=== PATIENT | female | born 1980 | race Caucasian/White ===

== ENCOUNTER 2016-09-07 10:29 | Emergency (ER) | payer OTHER ==
[~2016-09-07] VITALS: Ht 162.6 cm; Wt 63.3 kg
[~2016-09-07 10:29] MED LIST: CAMILA0.35 MG PO; CHROMAGEN,1 CAPSULE PO; FLEXERIL10 MG PO; FLOMAX0.4 MG PO; FLONASE16 G1 BOTH NARES; IBUPROFEN800 MG PO; MOTRIN800 MG PO; Micronor,Nor-Q-D,Err PO; NAPROSYN500 MG PO; PERCOCET 5/31 TABLET PO; PROAIR HFA8.5 GM IH; SINGULAIR10 MG PO; ULTRACET1 TABLET PO; ZOFRAN ODT4 MG PO
[2016-09-07] MEDS ORDERED: FLEXERIL10 MG PO (12:04)
[2016-09-07] MEDS ORDERED: NAPROXEN500 MG PO (12:04)
[2016-09-07] MEDS ORDERED: LIDODERM 5% P1 PATCH TD (12:04)
[2016-09-07 12:27] VITALS: BP 127/85
== END 2016-09-07 12:30 | disposition home or self-care (01) ==
LOC: EME 10:29
DX: S39.012A Strain of muscle, fascia and tendon of lower back, initial encounter (principal); X58.XXXA Exposure to other specified factors, initial encounter
CPT/HCPCS: 99281; 99284; J1885

== ENCOUNTER 2016-11-17 16:33 | Day surgery (SDC) | payer OTHER ==
[~2016-11-17] VITALS: Ht 162.6 cm; Wt 65.2 kg
[~2016-11-17 16:33] MED LIST changes: +LIDODERM 5% P1 PATCH TD; +NAPROXEN500 MG PO
[2016-11-17 17:30] LABS: EOSINOPHIL COUNT 0.3 K/uL (0-0.3); HEMATOCRIT 38.2 % (36.0-46.0); IMMATURE GRANULOCYTE (%) 0.6 % (0.0-0.7); IMMATURE GRANULOCYTE COUNT 0.1 K/uL; INSTRUMENT ABS NEUTROPHIL CT 6.5 K/uL; LYMPHOCYTE COUNT 1.1 K/uL (1.0-2.8); MCH 28.2 PG (29.0-34.0); MCHC 33.8 G/DL (30.0-36.0); MCV 83.4 FL (83-99); MEAN PLAT.VOLUME 9.6 uM^3 (9.5-12.4); MONOCYTE (%) 5.1 % (3-12); MONOCYTE COUNT 0.4 K/uL (0-0.8); NEUTROPHIL (%) 77.8 % (45-76); NEUTROPHIL COUNT 6.5 K/uL (1.8-6.4); PLATELET COUNT 268 K/uL (156-360); RBC DIS.WIDTH-CV 11.9 % (11.8-14.6); RBC DIS.WIDTH-SD 35.9 % (39-53); RED BLOOD COUNT 4.58 M/uL (3.80-5.20); WHITE BLOOD COUNT 8.3 K/uL (4.1-10.2)
[2016-11-17] MEDS ORDERED: CYANOCOBALAM1000 MCG PO (18:35)
[2016-11-17] MEDS ORDERED: NORA-BE0.35 MG PO (18:35)
[2016-11-17] MEDS ORDERED: [UNRECOGNIZED DRUG - REMARK] PO (18:36)
[2016-11-17] MEDS ORDERED: FLAGYL500 MG PO (19:24)
[2016-11-17] MEDS ORDERED: IBUPROFEN800 MG PO (19:24)
[2016-11-17 21:06] LABS: HEMATOCRIT 32.8 % (36.0-46.0); MCH 28.4 PG (29.0-34.0); MCHC 33.5 G/DL (30.0-36.0); MCV 84.5 FL (83-99); MEAN PLAT.VOLUME 9.7 uM^3 (9.5-12.4); PLATELET COUNT 219 K/uL (156-360); RBC DIS.WIDTH-CV 11.9 % (11.8-14.6); RBC DIS.WIDTH-SD 36.4 % (39-53); RED BLOOD COUNT 3.88 M/uL (3.80-5.20); WHITE BLOOD COUNT 9.8 K/uL (4.1-10.2)
[2016-11-17 21:27] VITALS: BP 117/62
== END 2016-11-17 21:54 | disposition home or self-care (01) ==
LOC: EME 16:33 → SDC 18:44 → EME 18:44 → SDC 21:54
PROVIDERS: Emergency Medicine; Obstetrics & Gynecology
PROC: 10D17ZZ Extraction of Products of Conception, Retained, Via Natural or Artificial Opening (ICD-10-PCS; principal; 2016-11-17)
DX: O03.4 Incomplete spontaneous abortion without complication (principal); Z31.82 Encounter for Rh incompatibility status; J45.909 Unspecified asthma, uncomplicated
CPT/HCPCS: 83030; 84702; 85025; 85027; 86900; 86901; 88305; 99281; 99285; J0131; J1100; J1885; J2250; J2405; J2590; J2765; J2790; J3010; J7030

== ENCOUNTER → 2018-01-19 | Outpatient (CLI) | payer OTHER ==
[2018-01-18 13:56] LABS: HEMATOCRIT 30.9 % (36.0-46.0); HEMOGLOBIN 9.7 G/DL (11.9-15.5); MCH 24.1 PG (29.0-34.0); MCHC 31.4 G/DL (30.0-36.0); MCV 76.7 FL (83-99); PLATELET COUNT 236 K/uL (156-360); RBC DIS.WIDTH-CV 14.1 % (11.8-14.6); RBC DIS.WIDTH-SD 39.2 % (39-53); RED BLOOD COUNT 4.03 M/uL (3.80-5.20); WHITE BLOOD COUNT 7.8 K/uL (4.1-10.2)
[2018-01-18 14:53] LABS: HEPATITIS B SURFACE ANTIBODY Nonreactive; HEPATITIS B SURFACE ANTIGEN Nonreactive
[2018-01-18 14:54] LABS: HIV-1/2 AB/AG COMBO Nonreactive
[2018-01-18 15:42] LABS: BENZODIAZEPINES, URINE SCREEN Negative (200 ng/mL)
[~2018-01-19] VITALS: Ht 162.6 cm; Wt 73.2 kg
[~2018-01-19] MED LIST changes: +CYANOCOBALAM1000 MCG PO; +FLAGYL500 MG PO; +NORA-BE0.35 MG PO; +ZYRTEC5 MG PO; +[UNRECOGNIZED DRUG - REMARK] PO
[2018-01-19 10:32] LABS: HEMOGLOBIN A1c (GLYCOHEMOGLOB) 5.5 % (Below 5.7)
[2018-01-19 11:18] LABS: TREPONEMA ANTIBODY EQUIVOCAL (NEGATIVE)
[2018-01-19 11:44] VITALS: BP 122/78
[2018-01-20 18:10] LABS: RPR SCREEN Nonreactive (Nonreactive)
[2018-01-21 20:14] LABS: TREPONEMA PALLIDUM PART AGGL Nonreactive (Nonreactive)
== END | disposition home or self-care (01) ==
LOC: IVINF 11:00
PROVIDERS: Advanced Practice Midwife
DX: Z34.83 Encounter for supervision of other normal pregnancy, third trimester (principal); Z31.82 Encounter for Rh incompatibility status; Z3A.28 28 weeks gestation of pregnancy; Z67.91 Unspecified blood type, Rh negative
CPT/HCPCS: 36415; 80306 90; 82950; 83036; 85027; 86592 90; 86706; 86762; 86780; 86780 90; 86850; 86900; 86901; 87086; 87340; 87389; J2790

== ENCOUNTER 2018-02-08 01:05 | Inpatient (IN) | payer OTHER ==
[2018-02-08] VITALS (10 sets, daily range): BP systolic 112–139; BP diastolic 61–79
[2018-02-08 02:02] LABS: BASOPHIL (%) 0.3 % (0-1); EOSINOPHIL (%) 0.7 % (0-5); EOSINOPHIL COUNT 0.1 K/uL (0-0.3); HEMATOCRIT 29.5 % (36.0-46.0); HEMOGLOBIN 9.4 G/DL (11.9-15.5); IMMATURE GRANULOCYTE (%) 0.8 % (0.0-0.7); LYMPHOCYTE (%) 21.2 % (15-42); LYMPHOCYTE COUNT 2.1 K/uL (1.0-2.8); MCHC 31.9 G/DL (30.0-36.0); MONOCYTE (%) 9.3 % (3-12); MONOCYTE COUNT 0.9 K/uL (0-0.8); NEUTROPHIL (%) 67.7 % (45-76); NEUTROPHIL COUNT 6.6 K/uL (1.8-6.4); PLATELET COUNT 267 K/uL (156-360); RBC DIS.WIDTH-CV 14.7 % (11.8-14.6); RBC DIS.WIDTH-SD 38.5 % (39-53); RED BLOOD COUNT 4.09 M/uL (3.80-5.20); WHITE BLOOD COUNT 9.8 K/uL (4.1-10.2)
[2018-02-08 02:03] LABS: MCV 72.1 FL (83-99)
[2018-02-08 02:29] LABS: AMPHETAMINE NEGATIVE (500 ng/mL); BARBITURATES NEGATIVE (200 ng/mL); BENZODIAZEPINES NEGATIVE (150 ng/mL); BUPRENORPHINE NEGATIVE (10 ng/mL); COCAINE NEGATIVE (150 ng/mL); METHADONE NEGATIVE (200 ng/mL); METHAMPHETAMINE NEGATIVE (500 ng/mL); OPIATES (MORPHINE) NEGATIVE (100 ng/mL); OXYCODONE NEGATIVE (100 ng/mL); PHENCYCLIDINE NEGATIVE (25 ng/mL); PROPOXYPHENE NEGATIVE (300 ng/mL); THC CANNABINOIDS NEGATIVE (50 ng/mL); TRICYCLIC ANTIDEPRESSANTS NEGATIVE (300 ng/mL)
[2018-02-09 06:20] LABS: BASOPHIL (%) 0.6 % (0-1); EOSINOPHIL (%) 1.8 % (0-5); EOSINOPHIL COUNT 0.1 K/uL (0-0.3); HEMATOCRIT 29.6 % (36.0-46.0); HEMOGLOBIN 9.1 G/DL (11.9-15.5); IMMATURE GRANULOCYTE (%) 1.2 % (0.0-0.7); LYMPHOCYTE (%) 23.3 % (15-42); LYMPHOCYTE COUNT 1.6 K/uL (1.0-2.8); MCH 22.9 PG (29.0-34.0); MCHC 30.7 G/DL (30.0-36.0); MCV 74.6 FL (83-99); MONOCYTE COUNT 0.5 K/uL (0-0.8); NEUTROPHIL (%) 66.1 % (45-76); NEUTROPHIL COUNT 4.5 K/uL (1.8-6.4); PLATELET COUNT 231 K/uL (156-360); RBC DIS.WIDTH-CV 14.7 % (11.8-14.6); RBC DIS.WIDTH-SD 40.2 % (39-53); RED BLOOD COUNT 3.97 M/uL (3.80-5.20); WHITE BLOOD COUNT 6.7 K/uL (4.1-10.2)
[2018-02-09 07:33] VITALS: BP 119/76
[2018-02-09] MEDS ORDERED: MICROGESTIN FE1 EAC1 PO (12:44)
== END 2018-02-09 14:20 | disposition home or self-care (01) | DRG 775 ==
LOC: LDRP-OP 01:05 → 2WEST 01:06 → LDRP-OP 22:06 → 2WEST 02-09 14:20
PROVIDERS: Advanced Practice Midwife
PROC: 10E0XZZ Delivery of Products of Conception, External Approach (ICD-10-PCS; principal; 2018-02-08)
DX: O99.344 Other mental disorders complicating childbirth (principal); D62 Acute posthemorrhagic anemia; F33.9 Major depressive disorder, recurrent, unspecified; Z3A.40 40 weeks gestation of pregnancy; O77.0 Labor and delivery complicated by meconium in amniotic fluid; O62.3 Precipitate labor; O69.1XX1 Labor and delivery complicated by cord around neck, with compression, fetus 1; Z37.0 Single live birth; O99.02 Anemia complicating childbirth; F41.9 Anxiety disorder, unspecified; D50.9 Iron deficiency anemia, unspecified; O12.04 Gestational edema, complicating childbirth; J45.909 Unspecified asthma, uncomplicated; O99.52 Diseases of the respiratory system complicating childbirth
CPT/HCPCS: 85025; J7120